=== PATIENT | male | born 1950 | race Asian ===

== ENCOUNTER 2024-01-08 07:39 | Day surgery (SDC) | payer OTHER ==
[2024-01-03 12:56] VITALS: BMI 24.2
[2024-01-08] MEDS ORDERED: PROPOFOL 160 ML ONE (08:20)
[2024-01-08] MEDS ORDERED: ePHEDrine SULFATE 50 MG/1 ML AMPULE ONE (09:07)
[2024-01-08 09:34] VITALS: TEMP 97.7
[2024-01-08 12:55] VITALS: BP 123/64; PULSE 73; RESP 18
== END 2024-01-08 10:10 | disposition home or self-care (01) ==
LOC: FASU-ENDO 07:39
PROVIDERS: ATTEND Internal Medicine Gastroenterology
PROC: 0DBH8ZX Excision of Cecum, Via Natural or Artificial Opening Endoscopic, Diagnostic (ICD-10-PCS; principal; 2024-01-08 08:59)
DX: Z12.11 Encounter for screening for malignant neoplasm of colon (principal); D12.0 Benign neoplasm of cecum
CPT/HCPCS: 82962; 88305-TC